=== PATIENT | male | born 1980 ===

== ENCOUNTER 2024-01-09 13:11 | Emergency (ER) | payer OTHER, SELFPAY ==
[2024-01-09 13:15] VITALS: BP 138/95
[2024-01-09 13:52] LABS: Urine Albumin Trace (Neg - Trace); Urine Bilirubin Negative (Negative); Urine Character Clear (Clear); Urine Color Straw; Urine Glucose Negative (Negative); Urine Ketone Negative (Negative); Urine Leukocyte Negative (Negative); Urine Nitrite Negative (Negative); Urine Occult Blood 4+ (Negative); Urine Urobilinogen Negative (Neg - 1+)
--- NOTE | 2024-01-09 13:57 | ED.GENMED ---
History of Present Illness
<Francine Nixon PA-C - Last Filed: 01/09/24 18:50>
General
Chief Complaint: Abdominal Pain
Source: patient
Exam Limitations: none
Time Seen by Provider: 01/09/24 13:29
Nursing documentation reviewed up to this point in time: agreed with
Travel History
Have you had any contact with someone who has COVID-19?: No
Do you have any symptoms of coronavirus? Fever > 100 degrees, chills, cough, shortness of breath, sore throat, loss of taste or smell, muscle aches, or headache?: No
History of Present Illness
History of Present Illness:
Patient is a 43-year-old male with no significant past medical history presenting for evaluation of acute onset right flank pain. Symptoms started approximately 3 hours ago while shopping in a grocery store. He had a sharp pain in his right flank
that has been intermittent since. The pain did not radiate anywhere. He denies any chest pain, shortness of breath, fevers, chills. He denies any dysuria or hematuria. He denies any nausea, vomiting, abdominal pain. He currently states that the
pain is not present and has no current complaints. No recent falls or trauma to the area.
He has no personal history of kidney stones.
Phy Exam
<Francine Nixon PA-C - Last Filed: 01/09/24 18:50>
Physical Exam
Physical Exam:
General: Well appearing and non-toxic
Vitals: Vital signs stable, afebrile
HEENT: Atraumatic, normocephalic; pupils equal round reactive to light bilaterally, protecting airway
Neck: appears supple, no cervical spine or midline spinal tenderness
CV: Regular rate and rhythm, heart sounds normal, no evidence of cyanosis
Resp: No evidence of respiratory distress, lungs clear, no accessory muscle use
Abd: Soft, nontender in all 4 quadrants, non-distended; no CVA tenderness; no reproducible back pain
Extremities: No deformities, no evidence of cyanosis or edema
Neuro: alert and oriented, speech normal, no focal or motor deficits
Psych: Normal affect
Skin: Intact, no rashes or bruising
Course
<Francine Nixon PA-C - Last Filed: 01/09/24 18:50>
Orders/Labs/Results
Orders:
Orders
01/09/24 13:37
Urinalysis Reflex To Culture Urgent
Date Specimen was Collected: 01/09/24
Time Specimen was Collected: 13:35
Urine Microscopic Reflex Cult Urgent
01/09/24 13:56
CT Abd/pel Without Iv Or Oral Urgent
Comment:
Reason For Exam: right flank pain
Abnormal Lab Results
01/09/24
13:37
Ur Occult Blood Reflex 4+ A
(Negative)
Urine RBC 50-60 A /HPF
(0-2)
Urine Bacteria (Reflex) Few A
(Negative)
Vital Signs
Initial and Last Documented VS:
Initial Vital Signs
Temp Pulse Resp BP Pulse Ox
97.7 F 71 18 138/95 98
01/09/24 13:15 01/09/24 13:15 01/09/24 13:15 01/09/24 13:15 01/09/24 13:15
Last Documented Vital Signs
Temp Pulse Resp BP Pulse Ox
97.7 F 79 18 130/85 98
01/09/24 13:15 01/09/24 15:54 01/09/24 13:15 01/09/24 16:39 01/09/24 13:15
Leenalt;Ezequiel Courtney DO - Last Filed: 01/09/24 16:11>
Orders/Labs/Results
Orders:
Orders
01/09/24 13:37
Urinalysis Reflex To Culture Urgent
Date Specimen was Collected: 01/09/24
Time Specimen was Collected: 13:35
Urine Microscopic Reflex Cult Urgent
01/09/24 13:56
CT Abd/pel Without Iv Or Oral Urgent
Comment:
Reason For Exam: right flank pain
Abnormal Lab Results
01/09/24
13:37
Ur Occult Blood Reflex 4+ A
(Negative)
Urine RBC 50-60 A /HPF
(0-2)
Urine Bacteria (Reflex) Few A
(Negative)
Vital Signs
Initial and Last Documented VS:
Initial Vital Signs
Temp Pulse Resp BP Pulse Ox
97.7 F 71 18 138/95 98
01/09/24 13:15 01/09/24 13:15 01/09/24 13:15 01/09/24 13:15 01/09/24 13:15
Last Documented Vital Signs
Temp Pulse Resp BP Pulse Ox
97.7 F 79 18 130/85 98
01/09/24 13:15 01/09/24 15:54 01/09/24 13:15 01/09/24 16:39 01/09/24 13:15
<Francine Nixon PA-C - Last Filed: 01/09/24 18:50>
MDM/Problems Addressed
Differential Diagnosis Includes:
Nephrolithiasis, UTI, muscle strain, etc.
MDM/Problems Addressed:
Patient is a 43-year-old male with no significant past medical history presenting for evaluation of acute onset right flank pain. Symptoms started around 11:30 AM while he was shopping at a grocery store and has been intermittent since. Patient
denies any recent trauma or straining. No fever, chills, urinary symptoms, nausea or vomiting. Patient has been asymptomatic throughout emergency department. Physical exam as document above. Vital signs stable, afebrile. He is extremely
well-appearing, in no apparent distress at the moment. Abdomen exam benign, no CVA tenderness. Will check urinalysis and noncontrast CT. Suspect likely kidney stone. He is not in any pain currently�declines any pain medicine at this time
Urinalysis with significant number of RBC. CT scan pending. Patient remains asymptomatic
CT scan shows 4 mm stone at right UVJ along with 7 mm stone within right kidney, nonobstructing. These findings are consistent with patient's history of pain.
He has remained well-appearing, in no apparent distress, and stable while in emergency department. He is afebrile. He is stable for discharge with return precautions, urology follow-up. Will send prescription for Percocet and Flomax. He will
follow-up with urology in a few days. Patient and patient's this plan. All questions answered.
Chronic conditions affecting care:
N/A
Acute Exacerbation and/or Progression of Chronic Illness:
Nephrolithiasis
<Francine Nixon PA-C - Last Filed: 01/09/24 18:50>
*Radiology
Radiology exam reviewed: preliminary read by ED provider and radiology read reviewed
*Pulse Oximetry
Patient hypoxic: no
*Double Ending Machine Operator Interpretation
Rate: Double Ending Machine Operator- N/A
*Critical Care Note
Total Time (30-74mins, 75-104mins- exclusive of procedures): Not Applicable
ED Attending Note
<Francine Nixon PA-C - Last Filed: 01/09/24 18:50>
-
Portions of this chart may have been created with voice recognition software.� Occasional wrong word or��sound alike� substitutions may have occurred due to the inherent limitations of voice recognition software.
<Ezequiel Courtney DO - Last Filed: 01/09/24 16:11>
ED Attending Note
Patient seen and examined by attending physician: Yes
I performed the substantive portion of visit, reviewed & personally made and approve the management plan that is documented in note by myself or [place].: Yes
I performed a history and physical exam of patient and discussed management with resident, I reviewed resident's note and agree with documented findings and plan of care.: Yes
ED Attending Note:
I evaluated patient at bedside and personally viewed CT imaging. The patient appears very comfortable. Hematuria noted on urinalysis. Distal ureteral stone also noted.
Discharge Plan
Departure
Patient Disposition: Home (Routine Discharge)
Date of Disposition: 01/09/24
Time of Disposition: 16:22
Patient with high blood pressure during this ER visit?: Yes
Condition: Good
Covid-19: Not Applicable
Discharge Problem:
Right nephrolithiasis
Instructions: Kidney Stone, Adult ED, BLOOD PRESSURE
Prescriptions:
New
oxycodone-acetaminophen [Percocet] 5-325 mg tablet
1 tab PO Q6HPRN PRN (Reason: pain) Qty: 10 0RF
tamsulosin [Flomax] 0.4 mg capsule
0.4 mg PO DAILY 14 Days Qty: 14 0RF
Rx Instructions:
Take 1 cap PO QD x 2 weeks or until you pass stone
Referrals:
Julio Carrillo MD [Active] - Call in 1-3 days for appt
Hood Britton, DO [Family Provider] - As needed
Activity Restrictions/Additional Instructions:
-Return to emergency department with any high fevers, severe back or abdominal pain, intractable vomiting, chest pain, shortness of breath, any signs of infection, worsening in current symptoms, or any other concerns
-Your prescriptions have been sent to the pharmacy. You can take Percocet every 6 hours as needed for pain. This may cause drowsiness - do not take prior to driving. You should take the tamsulosin every day for the next 2 weeks or until you pass the
stone. I have provided a urine strainer for you to use at home
-You can take advil as needed for pain if you do not require percocet.
-Stay well hydrated.
-Follow-up with urology for further evaluation/treatment. Call tomorrow for next appointment.
Interventions
Interventions:
*Risk Screen - Suicide Last Done: 01/09/24 13:20
*General Assessment Last Done: 01/09/24 13:20
*Neglect/Abuse Screening Last Done: 01/09/24 13:20
*ED COVID-19 Vaccine History Last Done: 01/09/24 13:19
*Nursing Disposition Last Done: 01/09/24 16:39
FU-Dprymp-[place] Assessment Last Done: 01/09/24 14:18
Discharge Date and Time
Discharge Date/Time: 01/09/24 16:49
[2024-01-09 14:32] LABS: Urine Bacteria Few (Negative); Urine Mucus Moderate; Urine Red Blood Cell 50-60 /HPF (0-2); Urine White Cell 0-2 /HPF (0-5)
[2024-01-09 15:54] VITALS: BP 130/85
[2024-01-09 16:39] VITALS: BP 130/85
== END 2024-01-09 16:49 | disposition home or self-care (01) ==
LOC: EMR 13:11
PROVIDERS: Physician Assistant; EMERGENCY PHYSICIAN Emergency Medicine; FAMILY PHYSICIAN Family Medicine
DX: N20.0 Calculus of kidney (principal); N13.6 Pyonephrosis; R03.0 Elevated blood-pressure reading, without diagnosis of hypertension
CPT/HCPCS: 99284; 74176; 81003; 81015

== ENCOUNTER 2024-04-11 06:25 | Day surgery (SDC) | payer MEDICARE, SELFPAY ==
[2024-04-11] VITALS (13 sets, daily range): BP systolic 94–151; BP diastolic 70–100; BMI 22.8
[2024-04-11] MEDS: NORMOSOL-R 1000 IV (07:49)
[2024-04-11] MEDS: Pyridium 200 MG PO (11:42)
== END 2024-04-11 12:52 | disposition home or self-care (01) ==
LOC: SDS 06:25
PROVIDERS: ATTENDING PHYSICIAN Specialist
DX: N20.0 Calculus of kidney (principal)
CPT/HCPCS: 52356; 74018; 76000; C1894; C2617